=== PATIENT | female | born 1975 | race American Indian/Alaskan Native ===

== ENCOUNTER 2017-06-21 23:15 | Emergency (ER) | payer BC ==
[2017-06-22] MEDS ORDERED: TORADOL IM ONE (07:40)
[2017-06-22 08:21] VITALS: BP 106/71
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
== END 2017-06-22 10:35 | disposition home or self-care (01) ==
LOC: ED 23:15
DX: M47.812 Spondylosis without myelopathy or radiculopathy, cervical region (principal); V49.59XA Passenger injured in collision with other motor vehicles in traffic accident, initial encounter; Y92.488 Other paved roadways as the place of occurrence of the external cause; Y93.89 Activity, other specified; Y99.9 Unspecified external cause status; Z88.0 Allergy status to penicillin
CPT/HCPCS: 70450; 72072; 72125; 81025; 96372; 99284; J1885